=== PATIENT | female | born 1955 | race African-American/Black ===

== ENCOUNTER 2018-01-14 12:21 | Inpatient (IN) | payer OTHER, MEDICAID ==
[~2018-01-14] VITALS: Ht 160 cm; Wt 68.9 kg
[~2018-01-14 12:21] MED LIST: ALBU18; AMLO10TA2; ASPI-231 PO; CHOL20009 PO; FOLI1TAB6; HYDR200T36 PO; METO-169; NITR0.4S29 SL; NITROSTAT; PAR20T PO; PRED1PAK10 PO; SERT20CO PO; SIMV-8; TRAZ100T2
[2018-01-14 13:11] LABS: Basophils # (auto) 0.1 uL; Basophils % (auto) 1.1 % (0.0-2.0); Eosinophils # (auto) 0.3 uL; Eosinophils % (auto) 4.2 % (0.0-7.0); Hematocrit 43.7 % (36.0-46.0); Hemoglobin 14.5 g/dL (12.2-16.2); Lymphocytes # (auto) 1.1 uL; Lymphocytes % (auto) 16.1 % (10.0-50.0); Mean Corpuscular Hemoglobin 31.3 pg (28.0-32.0); Mean Corpuscular Hgb Conc. 33.3 g/dL (32.0-36.0); Mean Corpuscular Volume 94.1 fL (80.0-100.0); Monocytes # (auto) 0.5 uL; Monocytes % (auto) 7.5 % (0.0-12.0); Neutrophils % (auto) 71.1 % (37.0-80.0); Nucleated Red Blood Cells % 0.1 %; Platelet Count (auto) 266 10^3/uL (140-450); Red Blood Cells 4.65 10^6/uL (4.0-5.20)
[2018-01-14 13:31] LABS: Alanine Aminotransferase 40 U/L (13-56); Albumin 4.3 g/dL (3.4-5.0); Alkaline Phosphatase 144 U/L (45-117); Anion Gap 9 (5-15); Aspartate Aminotransferase 66 U/L (15-37); BUN/Creatinine Ratio 15.5; Bilirubin, Total 1.1 mg/dL (0.2-1.0); Blood Urea Nitrogen 13 mg/dL (7-18); Calcium 9.5 mg/dL (8.5-10.1); Carbon Dioxide 28 mmol/L (21-32); Chloride 99 mmol/L (98-107); GFR African American 88 mL/min; GFR Non-African American 73 mL/min; Glucose 94 mg/dL (74-106); Sodium 136 mmol/L (136-145); Total Protein 8.4 g/dL (6.4-8.2)
[2018-01-14] MEDS ORDERED: metroNIDAZOLE 500MG/100ML 100 ML IV ONE (14:15)
[2018-01-14] MEDS ORDERED: cefTRIAXone 1GM/10ml IVPUSH 10 ML IV ONE (14:15)
[2018-01-14] MEDS: SODIUM CHLORIDE 0.9% 1,000 ML IV SCH (15:30)
[2018-01-14] MEDS ORDERED: LORazepam 2MG/ML-1ML VIAL IV PRN (15:30)
[2018-01-14] MEDS ORDERED: MORPHINE SULFATE 4 MG/ML SYR/VIAL IV PRN (15:30)
[2018-01-14] MEDS ORDERED: ONDANSETRON HCL 4 MG/2 ML VIAL IV PRN (15:30)
[2018-01-14 15:34] LABS: Lactic Acid w/Reflex 3.1 mmol/L (0.4-2.0)
[2018-01-14] MEDS: IPRATROPIUM BROM 0.5 MG/2.5ML INH SOL NEB SCH ×2 (18:16→23:03)
[2018-01-14] MEDS: ALBUTEROL SULF 2.5 MG/0.5ML(0.5%) NEB SOLN NEB SCH ×2 (18:16→23:04)
[2018-01-14] MEDS: HYDROcodone-ACET 5/325MG TAB PO PRN (19:41)
[2018-01-14] MEDS: metroNIDAZOLE 500MG/100ML 100 ML IV SCH (21:22)
[2018-01-14 21:56] LABS: Urine Bacteria FEW /hpf (None Seen); Urine Blood Negative /uL (Negative); Urine Specific Gravity 1.021 (1.001-1.035); Urine WBC <1 /hpf (0 - 5)
[2018-01-14 22:00] VITALS: BP 103/66
[2018-01-15 05:00] VITALS: BP 152/89
[2018-01-15] MEDS: SODIUM CHLORIDE 0.9% 1,000 ML IV SCH ×2 (05:00→19:40)
[2018-01-15] MEDS: ALBUTEROL SULF 2.5 MG/0.5ML(0.5%) NEB SOLN NEB SCH ×4 (06:00→23:57)
[2018-01-15] MEDS: IPRATROPIUM BROM 0.5 MG/2.5ML INH SOL NEB SCH ×4 (06:00→23:57)
[2018-01-15] MEDS: metroNIDAZOLE 500MG/100ML 100 ML IV SCH ×3 (06:04→22:11)
[2018-01-15] MEDS: HYDROcodone-ACET 5/325MG TAB PO PRN (06:05)
[2018-01-15 06:39] LABS: INR 1.11 (0.9-1.15); Partial Thromboplastin Time 29.6 sec (23.78-33.04); Prothrombin Time 11.8 sec (9.27-12.13)
[2018-01-15 06:44] LABS: Potassium 3.6 mmol/L (3.5-5.1)
[2018-01-15 06:50] LABS: Albumin 3.3 g/dL (3.4-5.0); BUN/Creatinine Ratio 12.7; Calcium 8.5 mg/dL (8.5-10.1)
[2018-01-15 06:53] LABS: Bilirubin, Total 0.9 mg/dL (0.2-1.0); Total Protein 6.7 g/dL (6.4-8.2)
[2018-01-15 09:00] VITALS: BP 130/85
[2018-01-15] MEDS: LEVOFLOXACIN 500MG 100 ML IV SCH (10:07)
[2018-01-15] MEDS: amLODIPine BESYLATE 5 MG TAB PO SCH (10:07)
[2018-01-15 13:00] VITALS: BP 124/72
[2018-01-15] MEDS: MORPHINE SULFATE 8mg/ml INJ SDV IV PRN ×2 (15:33→20:37)
[2018-01-15 17:00] VITALS: BP 144/69
[2018-01-15 22:00] VITALS: BP 120/68
[2018-01-16 05:36] VITALS: BP 134/84
[2018-01-16] MEDS: IPRATROPIUM BROM 0.5 MG/2.5ML INH SOL NEB SCH ×2 (05:49→11:49)
[2018-01-16] MEDS: ALBUTEROL SULF 2.5 MG/0.5ML(0.5%) NEB SOLN NEB SCH ×2 (05:49→11:49)
[2018-01-16] MEDS: metroNIDAZOLE 500MG/100ML 100 ML IV SCH ×2 (06:18→14:00)
[2018-01-16 07:03] LABS: Basophils # (auto) 0 uL; Basophils % (auto) 1.1 % (0.0-2.0); Eosinophils # (auto) 0.3 uL; Hematocrit 37.5 % (36.0-46.0); Hemoglobin 12.7 g/dL (12.2-16.2); Lymphocytes # (auto) 0.8 uL; Lymphocytes % (auto) 18.6 % (10.0-50.0); Mean Corpuscular Hgb Conc. 33.8 g/dL (32.0-36.0); Mean Corpuscular Volume 94.7 fL (80.0-100.0); Monocytes # (auto) 0.4 uL; Monocytes % (auto) 8.5 % (0.0-12.0); Neutrophils % (auto) 65.8 % (37.0-80.0); Nucleated Red Blood Cells % 0.1 %; Platelet Count (auto) 193 10^3/uL (140-450); Red Blood Cells 3.96 10^6/uL (4.0-5.20); Red Cell Distribution Width 12.9 % (11.8-14.3); White Blood Cell 4.6 10^3/uL (4.4-10.8)
[2018-01-16 08:00] VITALS: BP 139/82
[2018-01-16 09:00] VITALS: BP 139/82
[2018-01-16] MEDS: LEVOFLOXACIN 500MG 100 ML IV SCH (09:25)
[2018-01-16] MEDS: amLODIPine BESYLATE 5 MG TAB PO SCH (09:27)
[2018-01-16] MEDS: MORPHINE SULFATE 8mg/ml INJ SDV IV PRN (09:28)
[2018-01-16 11:41] VITALS: BP 139/82
[2018-01-16] MEDS: SODIUM CHLORIDE 0.9% 1,000 ML IV SCH (11:49)
== END 2018-01-16 14:10 | disposition home or self-care (01) | DRG 392 ==
LOC: ER 12:21 → OVERFLOW 12:22 → CENTRAL 20:04
PROVIDERS: ADMIT Internal Medicine; ATTEND Internal Medicine
DX: K57.32 Diverticulitis of large intestine without perforation or abscess without bleeding (principal); J96.10 Chronic respiratory failure, unspecified whether with hypoxia or hypercapnia; R16.0 Hepatomegaly, not elsewhere classified; Z99.81 Dependence on supplemental oxygen; K70.0 Alcoholic fatty liver; J44.9 Chronic obstructive pulmonary disease, unspecified; F41.9 Anxiety disorder, unspecified; M19.90 Unspecified osteoarthritis, unspecified site; R79.89 Other specified abnormal findings of blood chemistry; Z60.2 Problems related to living alone; E78.5 Hyperlipidemia, unspecified; F10.10 Alcohol abuse, uncomplicated; I10 Essential (primary) hypertension; Z87.891 Personal history of nicotine dependence; Z79.899 Other long term (current) drug therapy
CPT/HCPCS: 36415; 74176; 76705; 80053; 81001; 83605; 83690; 84443; 84484; 85025; 85610; 85730; 87040; 93005; 94640; 96374; 96375; J1956; J2270; J3490

== ENCOUNTER 2020-05-01 12:03 | Inpatient (IN) | payer OTHER, MEDICAID ==
[~2020-05-01] VITALS: Ht 157.5 cm; Wt 58.8 kg
[~2020-05-01 12:03] MED LIST changes: +AMLO10TA13; -AMLO10TA2; -HYDR200T36 PO; -TRAZ100T2; +TRAZ100T3
[2020-05-01 13:28] LABS: Basophils # (auto) 0.1 10 ^3/uL (0-0.2); Basophils % (auto) 1.8 % (0.0-2.0); Eosinophils # (auto) 0.4 10 ^3/uL (0-0.8); Eosinophils % (auto) 5.6 % (0.0-7.0); Hematocrit 47.7 % (36.0-46.0); Hemoglobin 15.7 g/dL (12.2-16.2); Lymphocytes # (auto) 1.6 10 ^3/uL (0.4-5.4); Lymphocytes % (auto) 22.4 % (10.0-50.0); Mean Corpuscular Hemoglobin 32.5 pg (28.0-32.0); Mean Corpuscular Volume 98.6 fL (80.0-100.0); Monocytes # (auto) 0.6 10 ^3/uL (0-1.3); Monocytes % (auto) 7.9 % (0.0-12.0); Neutrophils # (auto) 4.6 10 ^3/uL (1.6-8.6); Neutrophils % (auto) 62.3 % (37.0-80.0); Nucleated Red Blood Cells % 0.1 %; Platelet Count (auto) 251 10^3/uL (140-450); Red Blood Cells 4.84 10^6/uL (4.0-5.20); Red Cell Distribution Width 15.4 % (11.8-14.3); White Blood Cell 7.3 10^3/uL (4.4-10.8)
[2020-05-01 13:36] LABS: Albumin 4.3 g/dL (3.4-5.0); Anion Gap 13 (5-15); Blood Urea Nitrogen 16 mg/dL (7-18); Calcium 9.6 mg/dL (8.5-10.1); Carbon Dioxide 25 mmol/L (21-32); Chloride 97 mmol/L (98-107); Glucose 95 mg/dL (74-106); Sodium 135 mmol/L (136-145)
[2020-05-01 13:44] LABS: Alanine Aminotransferase 42 U/L (13-56); Alkaline Phosphatase 153 U/L (45-117); Aspartate Aminotransferase 78 U/L (15-37); BUN/Creatinine Ratio 19.3; Bilirubin, Total 2.3 mg/dL (0.2-1.0); GFR African American 89 mL/min; GFR Non-African American 74 mL/min; Total Protein 8.2 g/dL (6.4-8.2)
[2020-05-01 13:47] LABS: Magnesium 2.2 mg/dL (1.6-2.6)
[2020-05-01 13:55] LABS: CRP High Sensitivity 1.3 mg/dL (< 0.3)
[2020-05-01 13:58] LABS: Potassium 2.7 mmol/L (3.5-5.1)
[2020-05-01 14:03] LABS: INR 1.23 (0.9-1.15); Partial Thromboplastin Time 29.5 sec (23.0-31.2)
[2020-05-01] MEDS ORDERED: methylPREDNISolone SOD SUCC 125 MG/2 ML VL IV ONE (14:15)
[2020-05-01] MEDS ORDERED: ALBUTEROL SULF 2.5 MG/0.5ML(0.5%) NEB SOLN HHN ONE (14:15)
[2020-05-01] MEDS ORDERED: cefTRIAXone 1GM/50ML D5W 50 ML IV ONE (14:15)
[2020-05-01] MEDS ORDERED: IPRATROPIUM BROM 0.5 MG/2.5ML INH SOL HHN ONE (14:15)
[2020-05-01] MEDS ORDERED: POTASSIUM CHL 20 Meq TABLET PO ONE ×2 (14:15)
[2020-05-01] MEDS ORDERED: SODIUM CHLORIDE 0.9% 1,000 ML IV SCH (14:53)
[2020-05-01] MEDS ORDERED: traMADol HCL 50 MG TAB PO PRN (15:00)
[2020-05-01] MEDS ORDERED: THIAMINE 100mg/ml INJ (200mg/2ml VIAL) IV ONE (15:00)
[2020-05-01] MEDS ORDERED: PROMETHAZINE HCL 25 MG/ML 1ML IV PRN (15:00)
[2020-05-01] MEDS ORDERED: TEMAZEPAM 15 MG CAP PO PRN (15:00)
[2020-05-01] MEDS ORDERED: MORPHINE SULF INJ 2 MG/ML SYRINGE 1ML IV PRN ×2 (15:00)
[2020-05-01] MEDS ORDERED: chlordiazePOXIDE HCL 25 MG CAP PO PRN (15:00)
[2020-05-01] MEDS ORDERED: NITROGLYCERIN 0.4 MG SL TAB SL PRN (15:00)
[2020-05-01] MEDS ORDERED: ACETAMINOPHEN 500 MG TAB PO PRN (15:00)
[2020-05-01] MEDS ORDERED: ENOXAPARIN SOD 40 MG/0.4 ML SYRINGE SC ONE (15:30)
[2020-05-01] MEDS ORDERED: CHOLECALCIFEROL (VITD3) 2,000 UNIT CAP PO ONE (15:30)
[2020-05-01] MEDS ORDERED: ZINC SULFATE 220mg CAP or TAB PO ONE (15:45)
[2020-05-01] MEDS ORDERED: ASCORBIC ACID 1,000 MG TAB PO ONE (15:45)
[2020-05-01] MEDS: POTASSIUM CHL 20MEQ/100ML 100 ML IV SCH ×2 (20:07→23:32)
[2020-05-01] MEDS: SOD CHL 0.9%/ KCL 40MEQ 1,000 ML IV SCH (20:07)
[2020-05-01 20:42] LABS: Urine Bacteria FEW /hpf (None Seen); Urine Blood Negative /uL (Negative); Urine Hyaline Cast MOD /lpf (0 - 2); Urine Mucus FEW (None Seen); Urine Specific Gravity 1.032 (1.001-1.035); Urine WBC 6 /hpf (0 - 5)
[2020-05-01] MEDS ORDERED: ALBUTEROL SULFATE 90 MCG MDI IN ONE (20:45)
[2020-05-01] MEDS ORDERED: ALBUTEROL SULF HFA 90MCG INH 200DOSE IN SCH (22:00)
[2020-05-01] MEDS ORDERED: BUDESONIDE (INHALATION) 180 MCG IH IN SCH (22:00)
[2020-05-01 22:50] VITALS: BP 132/94
[2020-05-01] MEDS: FAMOTIDINE 20 MG TAB PO SCH (23:32)
[2020-05-01] MEDS: DOXYCYCLINE 100 MG TAB/CAP PO SCH (23:32)
[2020-05-02] VITALS (7 sets, daily range): BP systolic 101–132; BP diastolic 71–97
[2020-05-02] MEDS ORDERED: POTASSIUM CHL 20MEQ/100ML 100 ML IV ONE (02:00)
[2020-05-02] MEDS: POTASSIUM CHL 20MEQ/100ML 100 ML IV SCH (02:17)
[2020-05-02] MEDS: SOD CHL 0.9%/ KCL 40MEQ 1,000 ML IV SCH ×2 (06:05→19:25)
[2020-05-02 07:03] LABS: Basophils # (auto) 0 10 ^3/uL (0-0.2); Basophils % (auto) 0.3 % (0.0-2.0); Eosinophils # (auto) 0 10 ^3/uL (0-0.8); Hematocrit 44.6 % (36.0-46.0); Hemoglobin 14.2 g/dL (12.2-16.2); Mean Corpuscular Hemoglobin 31.6 pg (28.0-32.0); Mean Corpuscular Hgb Conc. 31.8 g/dL (32.0-36.0); Mean Corpuscular Volume 99.3 fL (80.0-100.0); Monocytes # (auto) 0.1 10 ^3/uL (0-1.3); Monocytes % (auto) 2.2 % (0.0-12.0); Neutrophils # (auto) 5.5 10 ^3/uL (1.6-8.6); Neutrophils % (auto) 82.5 % (37.0-80.0); Nucleated Red Blood Cells % 0.7 %; Platelet Count (auto) 211 10^3/uL (140-450); Red Blood Cells 4.49 10^6/uL (4.0-5.20); Red Cell Distribution Width 15.7 % (11.8-14.3); White Blood Cell 6.7 10^3/uL (4.4-10.8)
[2020-05-02 07:30] LABS: Potassium 4.2 mmol/L (3.5-5.1)
[2020-05-02 07:42] LABS: Albumin 3.6 g/dL (3.4-5.0); BUN/Creatinine Ratio 23.1; Bilirubin, Total 1.4 mg/dL (0.2-1.0); Total Protein 7.2 g/dL (6.4-8.2)
[2020-05-02] MEDS ORDERED: DexAMETHasone SOD PHOS 10MG/1ML VIAL INJ IV SCH (10:00)
[2020-05-02] MEDS ORDERED: ZINC SULFATE 220mg CAP or TAB PO SCH (10:00)
[2020-05-02] MEDS: DOXYCYCLINE 100 MG TAB/CAP PO SCH ×2 (10:55→22:00)
[2020-05-02] MEDS: ENOXAPARIN SOD 40 MG/0.4 ML SYRINGE SC SCH (10:55)
[2020-05-02] MEDS: ASCORBIC ACID 500 MG TAB PO SCH (10:55)
[2020-05-02] MEDS: FAMOTIDINE 20 MG TAB PO SCH ×2 (10:55→22:00)
[2020-05-02] MEDS: THIAMINE 100mg/ml INJ (200mg/2ml VIAL) IV SCH (10:55)
[2020-05-02] MEDS: CHOLECALCIFEROL (VITD3) 1,000UNIT=25mCg TAB PO SCH (10:56)
[2020-05-02] MEDS ORDERED: HALOPERIDOL LACTATE 5 MG/ML INJ VIAL IM PRN (15:45)
[2020-05-02] MEDS ORDERED: HALOPERIDOL LACTATE 5 MG/ML INJ VIAL IM ONE (16:15)
[2020-05-02] MEDS: CEPHALEXIN 250 MG CAP PO SCH (17:25)
[2020-05-02] MEDS: chlordiazePOXIDE HCL 25 MG CAP PO SCH (17:26)
[2020-05-02] MEDS ORDERED: LORazepam 2MG/ML-1ML VIAL IV PRN (19:30)
[2020-05-03 04:43] LABS: Alcohol, Urine < 3.0 mg/dL (0-10); Amphetamine Screen, Urine NEGATIVE (NEGATIVE); Barbiturate Scree,Urine NEGATIVE (NEGATIVE); Benzodiazephine Screen, Urine POSITIVE (NEGATIVE); Cannabinoid Screen, Urine NEGATIVE (NEGATIVE); Cocaine Screen, Urine NEGATIVE (NEGATIVE); Opiate Scree,Urine NEGATIVE (NEGATIVE); Phencyclidine Screen, Urine NEGATIVE (NEGATIVE)
[2020-05-03] MEDS: chlordiazePOXIDE HCL 25 MG CAP PO SCH ×5 (06:00→22:25)
[2020-05-03] MEDS: CEPHALEXIN 250 MG CAP PO SCH ×3 (06:00→12:20)
[2020-05-03 06:39] LABS: Basophils # (auto) 0.1 10 ^3/uL (0-0.2); Basophils % (auto) 0.7 % (0.0-2.0); Eosinophils # (auto) 0.1 10 ^3/uL (0-0.8); Eosinophils % (auto) 1.7 % (0.0-7.0); Hemoglobin 14.4 g/dL (12.2-16.2); Lymphocytes # (auto) 1.5 10 ^3/uL (0.4-5.4); Lymphocytes % (auto) 19.3 % (10.0-50.0); Mean Corpuscular Hemoglobin 32.4 pg (28.0-32.0); Mean Corpuscular Hgb Conc. 32.7 g/dL (32.0-36.0); Mean Corpuscular Volume 99.3 fL (80.0-100.0); Monocytes # (auto) 0.5 10 ^3/uL (0-1.3); Monocytes % (auto) 6.1 % (0.0-12.0); Neutrophils # (auto) 5.7 10 ^3/uL (1.6-8.6); Neutrophils % (auto) 72.2 % (37.0-80.0); Nucleated Red Blood Cells % 0.1 %; Platelet Count (auto) 188 10^3/uL (140-450); Red Blood Cells 4.43 10^6/uL (4.0-5.20); Red Cell Distribution Width 15.6 % (11.8-14.3); White Blood Cell 7.9 10^3/uL (4.4-10.8)
[2020-05-03 06:55] LABS: Albumin 3.5 g/dL (3.4-5.0); Potassium 3.5 mmol/L (3.5-5.1)
[2020-05-03 06:58] LABS: BUN/Creatinine Ratio 17.6; Bilirubin, Total 1.3 mg/dL (0.2-1.0); Total Protein 6.5 g/dL (6.4-8.2)
[2020-05-03 09:00] VITALS: BP 104/73
[2020-05-03] MEDS: ASCORBIC ACID 500 MG TAB PO SCH (11:05)
[2020-05-03] MEDS: FAMOTIDINE 20 MG TAB PO SCH ×2 (11:05→22:25)
[2020-05-03] MEDS: THIAMINE 100mg/ml INJ (200mg/2ml VIAL) IV SCH (11:05)
[2020-05-03] MEDS: SOD CHL 0.9%/ KCL 40MEQ 1,000 ML IV SCH (11:05)
[2020-05-03] MEDS: DOXYCYCLINE 100 MG TAB/CAP PO SCH ×2 (11:05→22:25)
[2020-05-03] MEDS: ENOXAPARIN SOD 40 MG/0.4 ML SYRINGE SC SCH (11:06)
[2020-05-03] MEDS: CHOLECALCIFEROL (VITD3) 1,000UNIT=25mCg TAB PO SCH (11:06)
[2020-05-03] MEDS ORDERED: IPRATROPIUM BROM 0.5 MG/2.5ML INH SOL NEB PRN (12:45)
[2020-05-03] MEDS ORDERED: ALBUTEROL SULF 2.5 MG/0.5ML(0.5%) NEB SOLN NEB PRN (12:45)
[2020-05-03] MEDS ORDERED: predniSONE 20 MG TAB PO ONE (12:45)
[2020-05-03 13:00] VITALS: BP 128/83
[2020-05-03 13:06] VITALS: BP 114/70
[2020-05-03 17:00] VITALS: BP 110/70
[2020-05-03 22:00] VITALS: BP 122/84
[2020-05-03] MEDS: ATORVASTATIN 20 MG TAB PO SCH (22:30)
[2020-05-04 05:00] VITALS: BP 114/86
[2020-05-04] MEDS: chlordiazePOXIDE HCL 25 MG CAP PO SCH (06:26)
[2020-05-04 09:00] VITALS: BP 101/73
[2020-05-04] MEDS: DOXYCYCLINE 100 MG TAB/CAP PO SCH (09:57)
[2020-05-04] MEDS: ENOXAPARIN SOD 40 MG/0.4 ML SYRINGE SC SCH (09:57)
[2020-05-04] MEDS: ASCORBIC ACID 500 MG TAB PO SCH (09:58)
[2020-05-04] MEDS: CHOLECALCIFEROL (VITD3) 1,000UNIT=25mCg TAB PO SCH (09:58)
[2020-05-04] MEDS: FAMOTIDINE 20 MG TAB PO SCH ×2 (09:58→22:00)
[2020-05-04] MEDS: ASPirin 81 mg TAB PO SCH (09:58)
[2020-05-04] MEDS ORDERED: predniSONE 20 MG TAB PO SCH (10:00)
[2020-05-04] MEDS: THIAMINE 100mg/ml INJ (200mg/2ml VIAL) IV SCH (10:09)
[2020-05-04 10:39] LABS: INR 1.18 (0.9-1.15)
[2020-05-04 10:45] LABS: Albumin 3.4 g/dL (3.4-5.0); Bilirubin, Direct 0.6 mg/dL (0-0.2); Cholesterol 200 mg/dL (< 200); HDL Cholesterol 29 mg/dL (40-59); LDL Cholesterol 152 mg/dL (< 100); Magnesium 1.8 mg/dL (1.6-2.6); Potassium 3.7 mmol/L (3.5-5.1); Triglycerides 167 mg/dL (< 150)
[2020-05-04 10:48] LABS: Bilirubin, Total 1.1 mg/dL (0.2-1.0); Total Protein 6.6 g/dL (6.4-8.2)
[2020-05-04] MEDS ORDERED: POTASSIUM CHL 20 Meq TABLET PO ONE (11:30)
[2020-05-04] MEDS ORDERED: MAGNESIUM SULFATE 1GM/100ML 100 ML IV ONE (11:30)
[2020-05-04] MEDS ORDERED: FLUCONAZOLE 200MG/100ML 100 ML IV ONE (11:45)
[2020-05-04] MEDS ORDERED: LORazepam 2MG/ML-1ML VIAL IV PRN (11:45)
[2020-05-04] MEDS ORDERED: chlordiazePOXIDE HCL 25 MG CAP PO PRN (11:45)
[2020-05-04] MEDS: FOLIC ACID 1 MG, MULTIPLE VITAMIN 10 ML, MAGNESIUM SULF SDV 50% 8 MEQ, THIAMINE INJ 100... INJ SCH ×5 (12:00)
[2020-05-04 12:51] LABS: Hepatitis B Surface Antibody Positive
[2020-05-04 13:00] VITALS: BP 123/80
[2020-05-04 13:30] LABS: Hepatitis A Total Antibody Positive
[2020-05-04 14:00] LABS: Hepatitis B Core Total AB Negative; Hepatitis B Surface Antigen Negative (Negative); Hepatitis C Antibody Negative (Negative)
[2020-05-04 16:49] VITALS: BP 135/99
[2020-05-04] MEDS: ATORVASTATIN 20 MG TAB PO SCH (22:00)
[2020-05-05 06:37] LABS: Albumin 3.4 g/dL (3.4-5.0); Magnesium 2.3 mg/dL (1.6-2.6); Potassium 4.2 mmol/L (3.5-5.1)
[2020-05-05 06:41] LABS: Bilirubin, Direct 0.5 mg/dL (0-0.2); Total Protein 6.5 g/dL (6.4-8.2)
[2020-05-05 09:00] VITALS: BP 116/79
[2020-05-05] MEDS: ASCORBIC ACID 500 MG TAB PO SCH (09:38)
[2020-05-05] MEDS: predniSONE 20 MG TAB PO SCH (09:39)
[2020-05-05] MEDS: FAMOTIDINE 20 MG TAB PO SCH ×2 (09:39→21:35)
[2020-05-05] MEDS: ASPirin 81 mg TAB PO SCH (09:39)
[2020-05-05] MEDS: ENOXAPARIN SOD 40 MG/0.4 ML SYRINGE SC SCH (09:40)
[2020-05-05] MEDS: THIAMINE 100mg/ml INJ (200mg/2ml VIAL) IV SCH (09:40)
[2020-05-05] MEDS: FLUCONAZOLE 200MG/100ML 100 ML IV SCH (09:41)
[2020-05-05] MEDS ORDERED: FLUC200T35 PO (12:29)
[2020-05-05] MEDS ORDERED: ASPI-378 PO (12:29)
[2020-05-05] MEDS ORDERED: ATOR10TA PO (12:29)
[2020-05-05 13:00] VITALS: BP 123/80
[2020-05-05] MEDS: LORazepam 2MG/ML-1ML VIAL IM PRN ×2 (13:00→21:35)
[2020-05-05] MEDS: FOLIC ACID 1 MG, MULTIPLE VITAMIN 10 ML, MAGNESIUM SULF SDV 50% 8 MEQ, THIAMINE INJ 100... INJ SCH ×5 (13:11)
[2020-05-05 17:00] VITALS: BP 137/87
[2020-05-05] MEDS: ATORVASTATIN 20 MG TAB PO SCH (21:35)
[2020-05-05 22:00] VITALS: BP 114/89
[2020-05-06 05:00] VITALS: BP 126/93
[2020-05-06 09:00] VITALS: BP 89/62
[2020-05-06] MEDS: ASPirin 81 mg TAB PO SCH (09:10)
[2020-05-06] MEDS: FLUCONAZOLE 200MG/100ML 100 ML IV SCH (09:10)
[2020-05-06] MEDS: ENOXAPARIN SOD 40 MG/0.4 ML SYRINGE SC SCH (09:10)
[2020-05-06] MEDS: predniSONE 20 MG TAB PO SCH (09:11)
[2020-05-06] MEDS: FAMOTIDINE 20 MG TAB PO SCH ×2 (09:11→23:12)
[2020-05-06] MEDS: THIAMINE 100mg/ml INJ (200mg/2ml VIAL) IV SCH (09:11)
[2020-05-06] MEDS: ASCORBIC ACID 500 MG TAB PO SCH (09:11)
[2020-05-06 11:44] VITALS: BP 89/62
[2020-05-06] MEDS: FOLIC ACID 1 MG, MULTIPLE VITAMIN 10 ML, MAGNESIUM SULF SDV 50% 8 MEQ, THIAMINE INJ 100... INJ SCH ×5 (12:00)
[2020-05-06 13:00] VITALS: BP 106/74
[2020-05-06 14:29] VITALS: BP 126/93
[2020-05-06 22:00] VITALS: BP 108/80
[2020-05-06] MEDS: ATORVASTATIN 20 MG TAB PO SCH (23:12)
[2020-05-07 05:00] VITALS: BP 105/78
[2020-05-07 08:43] VITALS: BP 113/86
[2020-05-07] MEDS: FAMOTIDINE 20 MG TAB PO SCH (09:13)
[2020-05-07] MEDS: ASPirin 81 mg TAB PO SCH (09:13)
[2020-05-07] MEDS: predniSONE 20 MG TAB PO SCH (09:13)
[2020-05-07] MEDS: ENOXAPARIN SOD 40 MG/0.4 ML SYRINGE SC SCH (09:14)
[2020-05-07] MEDS: FLUCONAZOLE 200MG/100ML 100 ML IV SCH (09:14)
[2020-05-07] MEDS: THIAMINE 100mg/ml INJ (200mg/2ml VIAL) IV SCH (09:15)
== END 2020-05-07 13:20 | disposition home health service (06) | DRG 189 ==
LOC: ER 12:03 → TELE 12:04 → TELE-EAST 21:44 → TELE-CENTR 05-02 02:24
PROVIDERS: ADMIT Internal Medicine; ATTEND Internal Medicine
DX: J96.20 Acute and chronic respiratory failure, unspecified whether with hypoxia or hypercapnia (principal); G93.41 Metabolic encephalopathy; J44.1 Chronic obstructive pulmonary disease with (acute) exacerbation; B37.49 Other urogenital candidiasis; F10.239 Alcohol dependence with withdrawal, unspecified; K70.30 Alcoholic cirrhosis of liver without ascites; Z20.828 Contact with and (suspected) exposure to other viral communicable diseases; E87.6 Hypokalemia; E78.5 Hyperlipidemia, unspecified; F41.9 Anxiety disorder, unspecified; F17.200 Nicotine dependence, unspecified, uncomplicated; I10 Essential (primary) hypertension; K57.30 Diverticulosis of large intestine without perforation or abscess without bleeding; K76.0 Fatty (change of) liver, not elsewhere classified; M19.90 Unspecified osteoarthritis, unspecified site; Z79.82 Long term (current) use of aspirin; Z79.899 Other long term (current) drug therapy; Z80.0 Family history of malignant neoplasm of digestive organs; Z80.1 Family history of malignant neoplasm of trachea, bronchus and lung; Z85.118 Personal history of other malignant neoplasm of bronchus and lung; Z83.3 Family history of diabetes mellitus; Z86.73 Personal history of transient ischemic attack (TIA), and cerebral infarction without residual deficits; Z71.6 Tobacco abuse counseling
CPT/HCPCS: 36415; 36600; 70450; 70551; 71045; 76705; 80053; 80061; 80076; 80307; 81001; 82140; 82728; 82805; 83605; 83615; 83735; 83880; 84132; 84443; 84484; 85025; 85610; 85730; 86141; 86704; 86706; 86708; 86803; 87040; 87086; 87088; 87186; 87340; 87426; 93005; 93306; 93886; 95819; 97116; 97163; 97530; G0378; J0696; J1450; J3480

== ENCOUNTER 2020-05-07 18:25 | Inpatient (IN) | payer OTHER, MEDICAID ==
[~2020-05-07] VITALS: Ht 167.6 cm; Wt 60.4 kg
[~2020-05-07 18:25] MED LIST changes: +ASPI-378 PO; +ATOR10TA PO; +FLUC200T35 PO; -SIMV-8
[2020-05-07] MEDS ORDERED: SODIUM CHLORIDE 0.9% 1,000 ML IV ONE (18:45)
[2020-05-07 19:39] LABS: Basophils # (auto) 0 10 ^3/uL (0-0.2); Basophils % (auto) 0.2 % (0.0-2.0); Eosinophils # (auto) 0 10 ^3/uL (0-0.8); Eosinophils % (auto) 0.3 % (0.0-7.0); Hematocrit 45.8 % (36.0-46.0); Hemoglobin 15.2 g/dL (12.2-16.2); Lymphocytes % (auto) 13.6 % (10.0-50.0); Mean Corpuscular Hemoglobin 33.1 pg (28.0-32.0); Mean Corpuscular Hgb Conc. 33.2 g/dL (32.0-36.0); Mean Corpuscular Volume 99.5 fL (80.0-100.0); Monocytes # (auto) 0.5 10 ^3/uL (0-1.3); Monocytes % (auto) 6.1 % (0.0-12.0); Neutrophils # (auto) 5.9 10 ^3/uL (1.6-8.6); Neutrophils % (auto) 79.8 % (37.0-80.0); Nucleated Red Blood Cells % 0.1 %; Platelet Count (auto) 200 10^3/uL (140-450); Red Cell Distribution Width 16.2 % (11.8-14.3); White Blood Cell 7.4 10^3/uL (4.4-10.8)
[2020-05-07 19:50] LABS: INR 1.19 (0.9-1.15); Partial Thromboplastin Time 27.2 sec (23.0-31.2)
[2020-05-07 20:15] LABS: Albumin 3.5 g/dL (3.4-5.0); Anion Gap 11 (5-15); Blood Urea Nitrogen 17 mg/dL (7-18); Calcium 9.2 mg/dL (8.5-10.1); Carbon Dioxide 20 mmol/L (21-32); Chloride 109 mmol/L (98-107); Glucose 107 mg/dL (74-106); Magnesium 2.5 mg/dL (1.6-2.6); Sodium 140 mmol/L (136-145)
[2020-05-07 20:19] LABS: Alanine Aminotransferase 73 U/L (13-56); Alkaline Phosphatase 137 U/L (45-117); Aspartate Aminotransferase 65 U/L (15-37); BUN/Creatinine Ratio 24.6; Bilirubin, Total 0.9 mg/dL (0.2-1.0); GFR African American 110 mL/min; GFR Non-African American 91 mL/min; Total Protein 6.8 g/dL (6.4-8.2)
[2020-05-07 21:00] LABS: Urine Bacteria FEW /hpf (None Seen); Urine Blood TRACE /uL (Negative); Urine Mucus FEW (None Seen); Urine Specific Gravity 1.012 (1.001-1.035); Urine WBC 4 /hpf (0 - 5)
[2020-05-07 21:07] LABS: Alcohol, Urine < 3.0 mg/dL (0-10); Amphetamine Screen, Urine NEGATIVE (NEGATIVE); Barbiturate Scree,Urine NEGATIVE (NEGATIVE); Benzodiazephine Screen, Urine POSITIVE (NEGATIVE); Cannabinoid Screen, Urine NEGATIVE (NEGATIVE); Cocaine Screen, Urine NEGATIVE (NEGATIVE); Opiate Scree,Urine NEGATIVE (NEGATIVE); Phencyclidine Screen, Urine NEGATIVE (NEGATIVE)
[2020-05-08] MEDS ORDERED: LORazepam 2MG/ML-1ML VIAL IV ONE
[2020-05-08] MEDS ORDERED: NITROGLYCERIN 0.4 MG SL TAB SL PRN ×2 (14:00→15:00)
[2020-05-08] MEDS ORDERED: MORPHINE SULF INJ 2 MG/ML SYRINGE 1ML IV PRN ×3 (14:00→15:00)
[2020-05-08] MEDS: SODIUM CHLORIDE 0.9% 1,000 ML IV SCH (14:49)
[2020-05-08] MEDS ORDERED: LORazepam 0.5 MG TAB PO PRN (15:00)
[2020-05-08] MEDS ORDERED: FOLIC ACID 1 MG TAB PO ONE (15:00)
[2020-05-08] MEDS ORDERED: LORazepam 2MG/ML-1ML VIAL IV PRN (15:00)
[2020-05-08] MEDS ORDERED: ACETAMINOPHEN 325 MG TAB PO PRN (15:00)
[2020-05-08] MEDS ORDERED: cefTRIAXone 1GM/50ML D5W 50 ML IV ONE (15:00)
[2020-05-08] MEDS ORDERED: DOCUSATE SOD 100 MG CAP PO PRN (15:00)
[2020-05-08] MEDS ORDERED: ALUM & MAG HYDROX-SIMETH LIQ(MAALOX) 30 ML PO PRN (15:00)
[2020-05-08] MEDS ORDERED: HYDROcodone-ACET 5/325MG TAB PO PRN (15:00)
[2020-05-08] MEDS ORDERED: ONDANSETRON HCL 4 MG/2 ML VIAL IV PRN (15:00)
[2020-05-08] MEDS ORDERED: THIAMINE 100mg/ml INJ (200mg/2ml VIAL) IV ONE (15:00)
[2020-05-08] MEDS ORDERED: MULTIPLE VITAMIN TAB PO ONE (15:00)
[2020-05-08 15:53] VITALS: BP 127/84
[2020-05-08] MEDS ORDERED: IPRATROPIUM BROM 0.5 MG/2.5ML INH SOL NEB PRN (16:00)
[2020-05-08 17:00] VITALS: BP 101/75
--- NOTE | 2020-05-08 17:25 | NUR ---
RECEIVED PT TO ROOM 206 RECEIVED REPORT FROM SHAKER PLATE OPERATOR. PT IS ROOM 206 WITH SITTER. PT ONLY ALERT TO SELF, SITTER AT BEDSIDE. PT STABLE AT THIS TIME.
--- NOTE | 2020-05-08 17:31 | NUR ---
BED REASSIGNMENT Informed by PAULINA Mojica,Charge Nurse patient was supposed to be assigned to [facility] with a sitter. Verbal report given to PAULINA Barrios, by PAULINA Grossman. Patient transported via wheelchair with all personal belongings with sitter.
--- NOTE | 2020-05-08 17:35 | NUR ---
PT REASSIGNED TO NEW UNIT REPORT GIVEN TO YAIR GALLARDO. PT STABLE AT THIS TIME. PT WAS REASSIGNED TO [facility].
--- NOTE | 2020-05-08 17:40 | NUR ---
RECEIVED REPORT ON THE PATIENT. PATIENT DOES NOT SHOW ANY SIGNS OF DISTRESS AT THE TIME.
[2020-05-08] MEDS ORDERED: IPRATROPIUM BROM 0.5 MG/2.5ML INH SOL NEB SCH (18:00)
--- NOTE | 2020-05-08 19:20 | NUR ---
Opening shift note Assumed care of patient from day shift RN. Patient sitting up watching television, AxO to name, respirations even and non-labored with no s/s of distress at this time, IV patent and intact running at 60 mls/hr. Bed in lowest locked position with 2 side rails up, sitter bedside. Will continue to monitor Q1hr and PRN.
[2020-05-08 21:00] VITALS: BP 107/76
[2020-05-08] MEDS: ATORVASTATIN 20 MG TAB PO SCH (21:22)
[2020-05-08] MEDS ORDERED: traZODone HCL 50 MG TAB PO SCH (22:00)
--- NOTE | 2020-05-08 22:21 | NUR ---
Central telemetry box #31 returned to ICU Replaced with West telemetry box #54
--- NOTE | 2020-05-09 01:26 | NUR ---
Patient sleeping Patient resting without s/s of distress or pain, sitter bedside.
--- NOTE | 2020-05-09 03:22 | NUR ---
Patient sleeping Patient resting without s/s of distress or pain, sitter bedside.
--- NOTE | 2020-05-09 04:30 | NUR ---
Optifoam/barrier cream applied to sacrum Patient incontinent of urine this morning. Noted pink areas to sacrum, applied barrier cream and optifoam to area.
[2020-05-09 05:00] VITALS: BP 93/66
--- NOTE | 2020-05-09 07:14 | NUR ---
Closing shift note Patient resting, respirations even and non-labored with no s/s of distress at this time. Sitter bedside. Endorsed care to day shift RN.
--- NOTE | 2020-05-09 07:22 | NUR ---
PRN MN TX NOT INDICATED AT THIS TIME. PT ON RA, 94% O2 SATS, HR 76 BPM, RR17 BPM, BS ARE CLEAR TO AUSCULTATION. RESPIRATION IS EVEN AND NON LABORED. NO SOB OR ANY OTHER RESPIRATORY DISTRESS NOTED. WILL CONTINUE TO MONITOR PT.
--- NOTE | 2020-05-09 07:44 | NUR ---
OPENING SHIFT NOTES RECEIVED REPORT ON THE PATIENT. SLEEPING IN BED. TRIED TO WAKE THE PATIENT UP AND SHE WAS DROWSY. TRIED TO DISCUSS THE PLAN OF CARE WITH THE PATIENT, BUT SHE WAS CONFUSED.PATIENT SHOWS NO SIGNS OF DISTRESS AT THIS TIME.
[2020-05-09] MEDS: SODIUM CHLORIDE 0.9% 1,000 ML IV SCH (08:19)
[2020-05-09] MEDS ORDERED: cefTRIAXone 1GM/50ML D5W 50 ML IV SCH (09:00)
[2020-05-09] MEDS: FOLIC ACID 1 MG TAB PO SCH (10:00)
[2020-05-09] MEDS: ASPirin 81 mg TAB PO SCH (10:00)
[2020-05-09] MEDS ORDERED: ENOXAPARIN SOD 40 MG/0.4 ML SYRINGE SC SCH (10:00)
[2020-05-09] MEDS: PARoxetine 20 MG TAB PO SCH (10:00)
[2020-05-09] MEDS ORDERED: CHOLECALCIFEROL (VITD3) 2,000 UNIT CAP PO SCH (10:00)
[2020-05-09] MEDS: MULTIPLE VITAMIN TAB PO SCH (10:00)
[2020-05-09] MEDS: THIAMINE HCL 100 MG TAB PO SCH (10:00)
[2020-05-09] MEDS ORDERED: amLODIPine BESYLATE 5 MG TAB PO SCH (10:00)
[2020-05-09 11:00] VITALS: BP 111/72
--- NOTE | 2020-05-09 11:02 | NUR ---
CALLED DR Clifton GARCIA REGARDING A LOW BP OF 86/60 HR 76 O2 95 RR 16. AWAITING A CALL BACK.
--- NOTE | 2020-05-09 11:08 | NUR ---
PAGED THE CAN TESTER SIX SIGMA BLACK BELT ENGINEER REGARDING PLACEMENT. AWAITING A CALL BACK.
[2020-05-09] MEDS ORDERED: SODIUM CHLORIDE 0.9% 2,000 ML IV ONE (11:15)
--- NOTE | 2020-05-09 11:15 | NUR ---
PEN RULER OPERATOR CALLED BACK. SAID SHE WILL WORK ON PLACEMENT ON SUNDAY. WILL LET KNOW.
[2020-05-09 13:00] VITALS: BP 118/74
[2020-05-09] MEDS ORDERED: chlordiazePOXIDE HCL 25 MG CAP PO PRN (16:15)
[2020-05-09 17:00] VITALS: BP 132/86
--- NOTE | 2020-05-09 17:36 | NUR ---
FAXED TELE MED CONSULT OF DR Estephanie CASON AT .
--- NOTE | 2020-05-09 19:25 | NUR ---
Opening shift note Assumed care of patient who is A&Ox1, respirations even and non-labored with no s/s of distress. Bed in lowest locked position with 3 side rails up. Sitter bedside, Will continue to monitor Q1hr and PRN.
[2020-05-09 22:00] VITALS: BP 119/79
[2020-05-09] MEDS: ATORVASTATIN 20 MG TAB PO SCH (22:13)
[2020-05-10] MEDS: SODIUM CHLORIDE 0.9% 1,000 ML IV SCH ×2 (00:09→16:49)
[2020-05-10] MEDS: LORazepam 2MG/ML-1ML VIAL IV PRN ×3 (00:29→23:04)
--- NOTE | 2020-05-10 03:08 | NUR ---
Patient combative and hostile Patient IV became dislodged and a new IV was being prepared to be placed. During the IV preparation, the patient began cursing at the nursing staff in the room and stated that she was going to punch us in the face if we tried to touch her. She continued to use profanity towards the nursing staff and threatened to harm whoever touched her. The patient was informed that her blood pressure was low, 95/68, and that she would need a new IV for medications, fluids, or an emergency. The patient continued to threaten physical harm to the staff, and balled her fists to hit anyone that came near her. The patient was placed in a trendelenberg position and her BP cuff was already in place on the upper left arm for monitoring. Will continue to monitor the patients blood pressure and mental status.
--- NOTE | 2020-05-10 03:38 | NUR ---
Patient blood pressure check Patient A&Ox2, allowed the BP cuff to be placed, 121/91, HR 85. Patient appeared pleasant and was cooperative while her VS were taken. Will continue to monitor.
--- NOTE | 2020-05-10 04:45 | NUR ---
Patient incontinent/dressing change Voided a large amount of dark yellow urine. Linens, and gown changed. Sacral dressing removed, barrier cream applied, optifoam applied. Patient tolerated well.
--- NOTE | 2020-05-10 05:06 | NUR ---
Blood pressure check 108/77, HR 86.
[2020-05-10 05:08] VITALS: BP 108/77
--- NOTE | 2020-05-10 06:24 | NUR ---
PRN MN TX NOT INDICATED AT THIS TIME. PT IN RA, O2 SATS 95%, HR 84 BPM, RR18 BPM, BS ARE CLEAR TO AUSCULTATION. NO SOB OR ANY OTHER RESPIRATORY DISTRESS NOTED. WILL CONTINUE TO MONITOR PT.
--- NOTE | 2020-05-10 07:30 | NUR ---
Opening Shift Note Assuming care of patient at this time. Patient is awake and alert. Patient is oriented to name and date of . Patient denies pain at this time. Patient shows no signs or symptoms of distress or shortness of breath. Bed is locked and lowered with side rails up x2. Instructed patient on the plan of care for today and to call for assistance as needed. Call light within reach. Will continue to round hourly and as needed. Sitter at bedside for safety.
--- NOTE | 2020-05-10 07:31 | NUR ---
Closing shift note Patient resting without s/s of distress at this time, sitter bedside. Endorsed care to day shift RN.
[2020-05-10 09:04] VITALS: BP 131/78
--- NOTE | 2020-05-10 09:15 | NUR ---
Call to Dr. Ybarra Call to Dr. Ybarra at this time to update on patient's status. Patient is calm, relaxed, and following commands.
[2020-05-10] MEDS: amLODIPine BESYLATE 5 MG TAB PO SCH (10:00)
[2020-05-10] MEDS: ASPirin 81 mg TAB PO SCH (11:18)
[2020-05-10] MEDS: MULTIPLE VITAMIN TAB PO SCH (11:19)
[2020-05-10] MEDS: FOLIC ACID 1 MG TAB PO SCH (11:19)
[2020-05-10] MEDS: PARoxetine 20 MG TAB PO SCH (11:19)
[2020-05-10] MEDS: THIAMINE HCL 100 MG TAB PO SCH (11:27)
[2020-05-10 13:00] VITALS: BP 118/74
--- NOTE | 2020-05-10 13:08 | NUR ---
Cardiology Consult Dr. Olivo at bedside to discuss plan of care with patient and this RN. KARSON to take place tomorrow. Will contact son for consents.
--- NOTE | 2020-05-10 14:40 | NUR ---
Agitation Patient has become increasingly agitated. Patient has been yelling, cussing, and threatening to hit the staff. Will administer Ativan at this time.
--- NOTE | 2020-05-10 14:53 | NUR ---
Call to Dr Hammer to Dr. Ybarra regarding patient's plan of care and new hospice orders. Awaiting callback.
[2020-05-10 15:25] LABS: Free T4 (Free Thyroxine) 1.19 ng/dL (0.89-1.76)
[2020-05-10 15:26] LABS: T3 Total 0.86 ng/mL (0.60-1.81)
[2020-05-10 15:27] LABS: Folate (Folic Acid) 7.98 ng/mL (5.38-24)
[2020-05-10 17:54] VITALS: BP 122/77
--- NOTE | 2020-05-10 18:58 | NUR ---
Respiratory note: PT SEEN AND ASSESSED FOR PRN MED NEB TX AT 1858. TX IS NOT INDICATED AT THIS TIME TIME. PT DISPLAYING NO SIGNS OF RESPIRATORY DISTRESS. HR 83 RR 18 SP02 92% ON ROOM AIR.
--- NOTE | 2020-05-10 19:17 | NUR ---
Closing Shift Note Patient resting in bed. Patient is complaining of pain. Pain medication is not due. Report given. Will endorse care to fast food shift lead RN.
--- NOTE | 2020-05-10 19:30 | NUR ---
Opening shift note Assumed care of patient who is A&Ox1, respirations even and non-labored with no s/s of distress or c/o pain at this time. Patient was pleasant and started to apologize for the way she was talking to the nurses earlier. IV flushed patent and intact. Bed in lowest locked position with 3 side rails up, call light by the patient. Sitter bedside. Will continue to monitor Q1hr and PRN.
--- NOTE | 2020-05-10 20:50 | NUR ---
Dr. Velez bedside Order for swallow evaluation and to continue with CPAP at night. Addendum: 05/10/20 at 2137 by CARLA COOPER RN RN Incorrect patient, disregard
--- NOTE | 2020-05-10 21:30 | NUR ---
Dressing to sacrum changed Turned patient, applied barrier cream to sacrum and covered with optifoam. Patient tolerated well. Repositioned to the right side for comfort.
[2020-05-10 21:41] VITALS: BP 112/75
[2020-05-10] MEDS: ATORVASTATIN 20 MG TAB PO SCH (23:03)
[2020-05-11 04:08] LABS: RPR Non Reactive (Non Reactive)
[2020-05-11 05:00] VITALS: BP 122/78
--- NOTE | 2020-05-11 05:46 | NUR ---
Dressing to sacrum changed Turned patient, applied barrier cream to sacrum and covered with optifoam. Patient tolerated well. Repositioned to the left side for comfort.
--- NOTE | 2020-05-11 07:28 | NUR ---
Closing shift note Patient resting with no s/s of distress or SOB at this time, sitter bedside. Endorsed care to day shift RN.
[2020-05-11 09:00] VITALS: BP 111/76
[2020-05-11] MEDS: SODIUM CHLORIDE 0.9% 1,000 ML IV SCH (09:29)
[2020-05-11] MEDS: amLODIPine BESYLATE 5 MG TAB PO SCH (10:00)
--- NOTE | 2020-05-11 10:30 | NUR ---
WOUND CARE NOTE: IN TO SEE PATIENT AT THIS TIME FOR LOW JEAN CARLOS SCORE OF 10. ADDED PATIENT TO SKIN INTEGRITY MONITORING. PATIENT ADMITTED TO [facility] WITH DIAGNOSIS OF ACUTE METABOLIC ENCEPHALOPATHY. SHE HAS SITTER AT BEDSIDE. PATIENT IS ABLE TO AMBULATE WITH ASSISTANCE BY SITTER, SELF TURN/REPOSITION SELF, HOWEVER, SHE DOES NOT FOLLOW COMMANDS. PATIENT HAS ORDER FOR HOSPICE, WITH DISCHARGE THIS PM TO SNF. SHE HAS DEVELOPED A 9 X 10 NON BLANCHABLE DARK RED AREA TO HER SACRUM WITH TWO OPEN PARTIAL THICKNESS PRESSURE INJURIES TO RIGHT/LEFT BUTTOCKS. WOUND PHOTO TAKEN FOR REFERENCE. APPLIED ZGUARD, OPTIFOAM GENTLE SACRAL DRESSING TO WOUND. NO OTHER SKIN INTEGRITY ISSUES NOTED AT THIS TIME. PATIENT WILL BE DISCHARGING THIS PM, NO MD ORDERS. IF PATIENT DOES NOT DISCHARGE: DAILY/PRN DRESSING CHANGE WITH ZGUARD, OPTIFOAM GENTLE SACRAL DRESSING, SPECIALTY AIR MATTRESS, SKIN/ WOUND CARE PLAN, DIETARY CONSULT, CONTINUED MONITORING BY WOUND CARE TEAM. Addendum: 05/11/20 at 1702 by Karissa Garcia RN Amended: Links added.
[2020-05-11] MEDS: FOLIC ACID 1 MG TAB PO SCH (10:35)
[2020-05-11] MEDS: ASPirin 81 mg TAB PO SCH (10:35)
[2020-05-11] MEDS: THIAMINE HCL 100 MG TAB PO SCH (10:35)
[2020-05-11] MEDS: MULTIPLE VITAMIN TAB PO SCH (10:36)
[2020-05-11] MEDS: PARoxetine 20 MG TAB PO SCH (10:36)
[2020-05-11 11:50] VITALS: BP 112/72
[2020-05-11] MEDS ORDERED: MIDAZOLAM HCL 1MG/1ML-2 ML VIAL IV ONE (11:50)
[2020-05-11] MEDS ORDERED: LIDOCAINE VISCOUS 2% 15ML UD PO ONE (11:50)
--- NOTE | 2020-05-11 11:58 | NUR ---
Patient taken down to cardiac catheterization technologist for procedure. Patient care endorsed to Maria Elena cardiac catheterization technologist rn. No acute distress or sob noted. Patient pleasantly confused at this time following commands.
[2020-05-11] MEDS ORDERED: fentaNYL CITRATE 100 MCG/2 ML VL IV ONE (12:00)
--- NOTE | 2020-05-11 12:52 | NUR ---
MD Ybarra aware of patient's status. Patient in biology laboratory assistant for procedure. New orders received for Klonipin PO bid prema. Will cont care on arrival.
--- NOTE | 2020-05-11 14:29 | NUR ---
Assessment Patient is a 64-year-old female who is confused. Assessment was completed with patient son Denilson . Prior to admission patient lived home alone and functioned independently. Per Denilson patient is unable to care for her self and at times get confused. Advised Denilson there is a social service consult for hospice with placement. Information and choice letter was given to Denilson. Denilson requested [facility]. Informed Denilson he has the right to participate in all discharge planning. Denilson verbalized understanding discharge plan. Faxed clinical information to [facility]. Per Maria Del Carmen with [facility] patient has been accepted and service to start upon /. Patient will be placed at [facility] under [facility]. [employer] transportation will transport patient to facility via gurney at 9:30pm. Bedside nurse has been informed. Addendum: 05/11/20 at 1442 by LORETTA THRASHER Amended: Links added.
--- NOTE | 2020-05-11 14:38 | NUR ---
Nutrition Assessment Est energy needs 9016-2737 kcal (25-30 kcal/kg BW 60.4kg) Est protein needs 48-60g (0.8-1g/kg BW 60.4kg) Will reassess prn. Addendum: 05/11/20 at [address] Amended: Links added.
--- NOTE | 2020-05-11 15:24 | NUR ---
Patient back from quality assurance/r&d lab technician patient arousable to name but noted very sleepy and drowsy. Klonopin as ordered held at this time due to grogginess. No acute distress or sob noted. Cont care
[2020-05-11 15:26] VITALS: BP 139/87
[2020-05-11] MEDS: clonazePAM 0.5 MG TAB PO SCH ×2 (15:40→21:52)
--- NOTE | 2020-05-11 15:42 | NUR ---
Spoke to Ivette, patient's friend after password provided, updated on POC and status as well as transfer to [facility].
[2020-05-11] MEDS ORDERED: ALPR0.25 PO (16:15)
[2020-05-11] MEDS ORDERED: CLON0.5T3 PO (16:15)
[2020-05-11] MEDS ORDERED: THIA100T10 PO (16:15)
[2020-05-11] MEDS ORDERED: AML5T PO (16:15)
[2020-05-11 17:06] VITALS: BP 110/73
--- NOTE | 2020-05-11 18:25 | NUR ---
[facility] rec [facility] including result for negative covid 19 from 05/01 as ordered by MD Ybarra. Results faxed to Amy at [phone] and she was notified via phone. [facility]. Patient denies thoughts of hurting self or others. Per MD Ybarra he reviewed tele psych report and no need for 5150 hold as pt is not suicidal. Will dc as ordered. Patient laying comfortably in bed, pleasantly confused and following commands at this time. Sitter at bedside for safety.
--- NOTE | 2020-05-11 19:10 | NUR ---
Opening Shift Note Assumed care of patient, awake and alert to self. No S/S of distress/SOB or pain. Instructed on POC and to call for assist PRN, patient safety measures in place bed in lowest position, side rails up x2 call light with in reach and patient has a sitter. will continue to monitor for changes Q1hr and PRN.
--- NOTE | 2020-05-11 21:45 | NUR ---
RECEIVED CALL FROM [facility],THEY ARE RUNNING LATE BUT WILL BE HERE TO TRANSPORT PATIENT AT [phone].
[2020-05-11] MEDS: ATORVASTATIN 20 MG TAB PO SCH (21:52)
[2020-05-11 22:00] VITALS: BP 130/83
--- NOTE | 2020-05-12 00:40 | NUR ---
Patient was discharged to [facility] via transport. Patient was alert and oriented to self no distress/sob/pain. Tele box removed, name band removed, and IV's removed.
== END 2020-05-12 00:30 | DRG 640 ==
LOC: ER 18:25 → EDBD 18:25 → TELE 18:26 → TELE-WESTW 05-08 17:20
PROVIDERS: ADMIT Hospitalist; ATTEND Internal Medicine
PROC: B24BZZ4 Ultrasonography of Heart with Aorta, Transesophageal (ICD-10-PCS; principal; 2020-05-11)
DX: E51.2 Wernicke's encephalopathy (principal); G92 Toxic encephalopathy; D68.9 Coagulation defect, unspecified; N39.0 Urinary tract infection, site not specified; I95.9 Hypotension, unspecified; E86.1 Hypovolemia; F01.50 Vascular dementia, unspecified severity, without behavioral disturbance, psychotic disturbance, mood disturbance, and anxiety; F41.9 Anxiety disorder, unspecified; E78.5 Hyperlipidemia, unspecified; F32.9 Major depressive disorder, single episode, unspecified; K70.10 Alcoholic hepatitis without ascites; R62.7 Adult failure to thrive; F10.20 Alcohol dependence, uncomplicated; F17.200 Nicotine dependence, unspecified, uncomplicated; Z83.3 Family history of diabetes mellitus; Z80.1 Family history of malignant neoplasm of trachea, bronchus and lung; Z79.899 Other long term (current) drug therapy; Z79.82 Long term (current) use of aspirin; M06.9 Rheumatoid arthritis, unspecified; K76.0 Fatty (change of) liver, not elsewhere classified; I11.9 Hypertensive heart disease without heart failure; Y90.9 Presence of alcohol in blood, level not specified; J44.9 Chronic obstructive pulmonary disease, unspecified
CPT/HCPCS: 36415; 70450; 71045; 80053; 80061; 80307; 80320; 81001; 82140; 82607; 82746; 82962; 83036; 83605; 83735; 83880; 84439; 84443; 84480; 84484; 85025; 85379; 85610; 85730; 86592; 87040; 87081; 93312; 99152; G0378; J0696; J2250